=== PATIENT | male | born 1945 | race Caucasian/White ===

== ENCOUNTER 2018-02-13 02:24 | Day surgery (SDC) | payer MEDICARE, OTHER ==
[~2018-02-13] VITALS: Ht 172.7 cm; Wt 104.0 kg
[~2018-02-13 02:24] MED LIST: ALBU90OI INH; AMOCLA875 PO; ASPI81CH PO; ATEN25 PO; BENZ100A PO; DIAZ10 PO; MONT10T PO; OMEP20ER PO; OXYC10ER PO; PANT40 PO; PSECHLCR; Voltaren100 GM TOP; [UNRECOGNIZED DRUG - REMARK]
[2018-02-13] MEDS ORDERED: ATOR20 PO (08:31)
== END 2018-02-13 12:00 | disposition home or self-care (01) ==
LOC: MHTC 02:24
PROC: 4A023N7 Measurement of Cardiac Sampling and Pressure, Left Heart, Percutaneous Approach (ICD-10-PCS; principal; 2018-02-13)
PROC: B211YZZ Fluoroscopy of Multiple Coronary Arteries using Other Contrast (ICD-10-PCS; principal; 2018-02-13)
PROC: 4A033BC Measurement of Arterial Pressure, Coronary, Percutaneous Approach (ICD-10-PCS; principal; 2018-02-13)
DX: I25.10 Atherosclerotic heart disease of native coronary artery without angina pectoris (principal); I45.9 Conduction disorder, unspecified; E66.9 Obesity, unspecified
CPT/HCPCS: 85347; 93458; 93571; 93572; 99152; 99153; C1769; C1894; J1644; J2250; J3010; J7030; Q9967

== ENCOUNTER 2018-02-22 07:37 | Day surgery (SDC) | payer MEDICARE, OTHER ==
[~2018-02-22] VITALS: Ht 172.7 cm; Wt 108.4 kg
[~2018-02-22 07:37] MED LIST changes: +ATOR20 PO
[2018-02-22 07:56] LABS: BASOPHILS ABSOLUTE AUTO 0.05 K/mm3 (0.00-0.23); BASOPHILS PERCENT AUTO 1 % (0-2); EOSINOPHILS ABSOLUTE AUTO 0.18 K/mm3 (0.00-0.68); EOSINOPHILS PERCENT AUTO 2 % (0-6); Hematocrit 44.2 % (37.0-53.0); Hemoglobin 14.6 g/dL (13.5-17.5); IMMATURE GRAN ABSOLUTE AUTO 0.03 K/mm3 (0.00-0.10); IMMATURE GRAN PERCENT AUTO 0 % (0-1); LYMPHOCYTES ABSOLUTE AUTO 2.38 K/mm3 (0.84-5.20); LYMPHOCYTES PERCENT AUTO 31 % (21-46); MONOCYTES ABSOLUTE AUTO 0.92 K/mm3 (0.16-1.47); MONOCYTES PERCENT AUTO 12 % (4-13); Mean Corpuscular HGB 31.3 pg (26.0-34.0); Mean Corpuscular Volume 95 fL (80-100); Mean Platelet Volume 9.3 fL (9.1-12.4); NEUTROPHILS ABSOLUTE AUTO 4.22 K/mm3 (1.96-9.15); NEUTROPHILS PERCENT AUTO 54 % (41-73); Platelet Count 351 K/mm3 (150-400); RDW Coefficient Variation 12.6 % (11.7-14.2); RDW Standard Deviation 43.9 fL (35.1-46.3); Red Blood Cell Count 4.66 M/mm3 (4.30-5.90); White Blood Cell Count 7.78 K/mm3 (4.00-11.30)
[2018-02-22 08:06] LABS: Anion Gap 4 mmol/L (6-16); Blood Urea Nitrogen 12 mg/dL (8-24); Bun/Creatinine Ratio 11.2 (12.0-20.0); CO2, Blood 29 mmol/L (21-32); Calcium, Blood 9.1 mg/dL (8.5-10.1); Chloride, Blood 104 mmol/L (98-108); Creatinine, Blood 1.07 mg/dL (0.60-1.20); Glomerular Filtration Rate >60 (60-); Glucose, Blood 92 mg/dL (70-99); Potassium, Blood 4.7 mmol/L (3.5-5.5); Sodium, Blood 137 mmol/L (136-145)
[2018-02-22 08:07] LABS: International Normalized Ratio 0.97
== END 2018-02-23 13:00 | disposition home or self-care (01) ==
LOC: MHTC 07:37 → PCU 11:15 → MHTC 02-23 13:00
PROVIDERS: Internal Medicine Cardiovascular Disease
PROC: 02HK3JZ Insertion of Pacemaker Lead into Right Ventricle, Percutaneous Approach (ICD-10-PCS; principal; 2018-02-22)
PROC: 0JH606Z Insertion of Pacemaker, Dual Chamber into Chest Subcutaneous Tissue and Fascia, Open Approach (ICD-10-PCS; principal; 2018-02-22)
PROC: 02H63JZ Insertion of Pacemaker Lead into Right Atrium, Percutaneous Approach (ICD-10-PCS; principal; 2018-02-22)
DX: I45.9 Conduction disorder, unspecified (principal); R00.1 Bradycardia, unspecified; Z01.810 Encounter for preprocedural cardiovascular examination; I25.10 Atherosclerotic heart disease of native coronary artery without angina pectoris; E66.01 Morbid (severe) obesity due to excess calories; K21.9 Gastro-esophageal reflux disease without esophagitis
CPT/HCPCS: 33208; 36415; 71046; 80048; 85025; 85610; 94760; 99152; 99153; C1769; C1785; C1898; J0690; J1644; J2250; J3010; J7030; J7040

== ENCOUNTER 2020-12-08 08:05 | Day surgery (SDC) | payer MEDICARE, OTHER ==
[~2020-12-08] VITALS: Ht 172.7 cm; Wt 109.0 kg
[~2020-12-08 08:05] MED LIST changes: +ATOR40TA PO; +ELIQUIS5 M2 PO
[2020-12-08] MEDS ORDERED: 1/2 NS 250ml250 ML (09:44)
[2020-12-08] MEDS ORDERED: Amiodarone HCl200 MG PO (09:44)
--- NOTE | 2020-12-08 11:07 | NUR ---
PT IV DC'D INTACT, DRESSED, AMBULATES OUT W THIS RN, DRIVING PT HOME, PACEMAKER CHECKED, 12L EKG CHECKED AND REVIEWED BY DR BAIN.
== END 2020-12-08 23:00 | disposition home or self-care (01) ==
LOC: MHTC 08:05
DX: I48.19 Other persistent atrial fibrillation (principal); I25.10 Atherosclerotic heart disease of native coronary artery without angina pectoris; I77.819 Aortic ectasia, unspecified site; I11.0 Hypertensive heart disease with heart failure; I50.9 Heart failure, unspecified; E78.5 Hyperlipidemia, unspecified; I07.1 Rheumatic tricuspid insufficiency; I27.20 Pulmonary hypertension, unspecified; J45.909 Unspecified asthma, uncomplicated; E66.9 Obesity, unspecified; Z95.0 Presence of cardiac pacemaker; Z79.01 Long term (current) use of anticoagulants; Z68.36 Body mass index [BMI] 36.0-36.9, adult
CPT/HCPCS: 92960; 93005; 93010; J7120